=== PATIENT | male | born 1985 | race Caucasian/White ===

== ENCOUNTER 2019-01-11 15:14 | Emergency (ER) | payer OTHER, MEDICAID ==
[~2019-01-11] VITALS: Ht 175.3 cm; Wt 93.0 kg
--- NOTE | 2019-01-11 15:23 | NUR ---
Pt currently denies si/hi. Has no reason as to why he swolled 2 pencils and several yunior. Nad noted at this time. Breathing regular and unlabored. WCSO at bedside with pt. Pt on cont. pulse ox and bp. Will continue to monitor.
--- NOTE | 2019-01-11 16:00 | NUR ---
PT TO X-RAY WITH [facility]IA [employer]
[2019-01-11 16:39] LABS: BASOPHILS # (AUTO) 0.07 x10^3/uL (0-0.1); BASOPHILS % (AUTO) 1 % (0-1); EOSINOPHILS # (AUTO) 0.03 x10^3/uL (0-0.4); EOSINOPHILS % (AUTO) 0 % (1-7); LYMPHOCYTES # (AUTO) 2.38 x10^3/uL (1-3.4); LYMPHOCYTES % (AUTO) 18 % (22-44); MD NO; MEAN CORPUSCULAR HEMOGLOBIN 28.5 pg (27.5-34.5); MEAN CORPUSCULAR HGB CONC 33.1 g/dL (33.2-36.2); MEAN CORPUSCULAR VOLUME 86.1 fL (81-97); MEAN PLATELET VOLUME 7.9 fL (7.4-10.4); MONOCYTES # (AUTO) 0.86 x10^3/uL (0.2-0.8); MONOCYTES % (AUTO) 6 % (2-9); NEUTROPHILS # (AUTO) 10.18 x10^3/uL (1.8-6.8); NEUTROPHILS % (AUTO) 75 % (42-75); PLATELET COUNT 349 x10^3/uL (130-400); RED BLOOD COUNT 5.24 x10^6/uL (4.38-5.82); RED CELL DISTRIBUTION WIDTH 13.6 % (9.4-14.8)
[2019-01-11 16:42] LABS: ALBUMIN 3.7 g/dL (3.4-5.0); ANION GAP 10 mmol/L (5-15); CALCIUM 8.9 mg/dL (8.5-10.1); CHLORIDE 109 mmol/L (98-107)
[2019-01-11 16:46] LABS: ALANINE AMINOTRANSFERASE 31 U/L (12-78); ALKALINE PHOSPHATASE 85 U/L (45-117); BILIRUBIN,TOTAL 0.8 mg/dL (0.2-1.0); CREATININE 0.91 mg/dL (0.7-1.3); TOTAL PROTEIN 7.4 g/dL (6.4-8.2)
--- NOTE | 2019-01-11 16:52 | NUR ---
ERP AT BEDSIDE TO DISCUSS RESULTS AND UPDATE POC.
--- NOTE | 2019-01-11 17:04 | NUR ---
IV STARTED. POC UPDATED. PT AGREEABLE.
--- NOTE | 2019-01-11 17:15 | NUR ---
PT TO CT VIA [facility]. [facility]O WITH PATIENT.
[2019-01-11] MEDS ORDERED: OMNIPAQUE 350 MG/ML, 100ML BOTTLE ONE (17:33)
[2019-01-11 18:00] VITALS: BP 123/80
--- NOTE | 2019-01-11 18:29 | NUR ---
PT GIVEN VERBALIZED UNDERSTANDING. VERBALIZED UNDERSTANDING. TO LEAVE ONCE [facility]CSO HAS VECHILE TO TAKE PATIENT BACK TO [facility].
--- NOTE | 2019-01-11 18:49 | NUR ---
[facility] HERE TO TAKE PATIENT AWAY.
== END 2019-01-11 18:51 | disposition home or self-care (01) ==
LOC: ED 16:36
DX: R10.84 Generalized abdominal pain (principal); T18.3XXA Foreign body in small intestine, initial encounter; F44.5 Conversion disorder with seizures or convulsions; X58.XXXA Exposure to other specified factors, initial encounter; Y93.89 Activity, other specified; Y92.89 Other specified places as the place of occurrence of the external cause; Y99.8 Other external cause status
CPT/HCPCS: 36415; 74022; 74177; 80053; 83690; 85025; 99284; Q9967